=== PATIENT | male | born 1960 | race Caucasian/White ===

== ENCOUNTER → 2019-12-21 | Outpatient (CLI) | payer BC ==
--- NOTE | 2019-12-21 15:58 | US ---
EXAMINATION TYPE: US kidneys/renal and bladder DATE OF EXAM: 12/21/2019 COMPARISON: NONE CLINICAL HISTORY: N18.3 Chronic kidney disease, stage 3. CKD Stage 3 EXAM MEASUREMENTS: Right Kidney: 9.5 x 4.0 x 4.3 cm Left Kidney: cm Post Void Residual Volume: mL Right Kidney: Echogenic area lower pole .8cm . Cystic area upper pole 2.0 x 1.3 x 1.7 cm Left Kidney: 9.6 x 5.6 x 5.6 cm Bladder: wnl Bilateral Jets seen: Yes There is no evidence for hydronephrosis at this point in time. The urinary bladder is anechoic. B ilateral ureteral jets are seen. IMPRESSION: 1. Nonobstructing nephrolithiasis right kidney. 2. Simple appearing cyst upper pole right kidney.
== END | disposition home or self-care (01) ==
LOC: RADUSWWP 15:16
PROVIDERS: ATTEND Internal Medicine
DX: N20.0 Calculus of kidney (principal); N28.1 Cyst of kidney, acquired; N18.3 Chronic kidney disease, stage 3 (moderate)
CPT/HCPCS: 76770

== ENCOUNTER 2022-09-12 11:24 | Day surgery (SDC) | payer BC ==
[~2022-09-12 11:24] MED LIST: ACETAMINOPHEN TAB 500 MG TAB PO PRN; DEXAMETHASONE SOD PHOSPHATE 4 MG/ML 1 ML VIAL IV ONE; HEPARIN SODIUM,PORCINE/PF 5,000 UNIT/0.5 ML SYRINGE SQ PRN; HYDROmorphone 0.5 MG/0.5 ML SYRINGE IVP PRN; LACTATED RINGERS 1,000 ML IV SCH; LIDOCAINE 1% (10MG/ML) FOR IV START INTRADERMA PRN; MIDAZOLAM 2 MG/2 ML VIAL IV PRN; ONDANSETRON 4 MG/2 ML VIAL IVP ONE
[2022-09-12] MEDS ORDERED: LACTATED RINGERS 1,000 ML IV ONE ×2 (11:45→13:54)
--- NOTE | 2022-09-12 11:57 | P.GSHP ---
History of Present Illness H&P Date: 09/12/22 Chief Complaint: Left inguinal hernia 62-year-old male last seen in the office in February. Patient with complaints of a bulge left groin. Mild pain at times. This is increasing in size. The patient has cut down significantly on his tobacco use. Past Medical History Past Medical History: Hypertension, Renal Disease Additional Past Medical History / Comment(s): stage 2b kidney disease History of Any Multi-Drug Resistant Organisms: None Reported Additional Past Surgical History / Comment(s): biceps repair on lft, cyst removed Past Anesthesia/Blood Transfusion Reactions: No Reported Reaction Smoking Status: Current every day smoker - Past Family History Mother Family Medical History: Cancer Additional Family Medical History / Comment(s): mother sister and sister bone Medications and Allergies Home Medications Medication Instructions Recorded Confirmed Type Multivitamins, Thera [Multivitamin 1 tab PO DAILY 09/11/22 09/12/22 History (formulary)] Niacin 1,000 mg PO DAILY 09/11/22 09/12/22 History hydroCHLOROthiazide [Hydrodiuril] 50 mg PO DAILY 09/11/22 09/12/22 History Allergies Allergy/AdvReac Type Severity Reaction Status Date / Time No Known Allergies Allergy Verified 09/12/22 11:47 Surgical - Exam Physical exam: General: Well-developed, well-nourished HEENT: Normocephalic, sclerae nonicteric Abdomen: Nontender, nondistended, reducible left inguinal hernia Extremities: No edema Neuro: Alert and oriented Assessment and Plan (1) Left inguinal hernia Narrative/Plan: 62-year-old male with reducible left inguinal hernia. Options reviewed. We'll proceed with laparoscopic da Larry assisted repair left inguinal hernia with me , possible open, possible bilateral. Risks of bleeding, infection, recurrence, bladder and bowel injury, numbness, nerve injury, conversion to an open procedure were discussed with the patient. The patient understands and wishes to proceed. Current Visit: Yes Status: Acute Code(s): K40.90 - UNIL INGUINAL HERNIA, W/O OBST OR GANGR, NOT SPCF RECUR SNOMED Code(s): 455477493
[2022-09-12 12:23] VITALS: TEMP 97.6
[2022-09-12] MEDS ORDERED: TAMSULOSIN 0.4 MG CAP.ER.24H PO ONE (12:24)
[2022-09-12] MEDS ORDERED: ROCURONIUM 10 MG/ML (5 ML VIAL) IV ONE (12:32)
[2022-09-12] MEDS ORDERED: GLYCOPYRROLATE 0.2 MG/ML 2 ML VIAL ONE (12:32)
[2022-09-12] MEDS ORDERED: MIDAZOLAM 2 MG/2 ML VIAL ONE (12:32)
[2022-09-12] MEDS ORDERED: NEOSTIGMINE 1 MG/ML 10 ML VIAL ONE (12:32)
[2022-09-12] MEDS ORDERED: LIDOCAINE 2% INJ 20 MG/ML (2 ML VIAL) ONE (12:32)
[2022-09-12] MEDS ORDERED: PROPOFOL 10 MG/ML 20 ML VIAL IV ONE (12:32)
[2022-09-12] MEDS ORDERED: ePHEDrine 50 MG/ML 1 ML VIAL ONE (12:32)
[2022-09-12] MEDS ORDERED: fentaNYL (PF) 50 MCG/ML 2 ML AMP ONE (12:32)
[2022-09-12] MEDS ORDERED: SUCCINYLCHOLINE CHLORIDE 200 MG/10 ML VIAL IV ONE (12:32)
[2022-09-12] MEDS ORDERED: BUPIVACAINE (PF) 0.25% 30 ML VIAL SQ ONE (12:58)
[2022-09-12] MEDS ORDERED: TAMSULOSIN 0.4 MG CAP.ER.24H PO STA (14:13)
[2022-09-12] MEDS ORDERED: ACETAMINOPHEN TAB 325 MG TAB PO SCH (14:15)
--- NOTE | 2022-09-12 14:33 | P.OP ---
Date of Procedure: 09/12/22 Procedure(s) Performed: PREOPERATIVE DIAGNOSIS: Left inguinal hernia POSTOPERATIVE DIAGNOSIS: Left indirect inguinal hernia PROCEDURE: Laparoscopic da Lrary assisted repair left inguinal hernia with mesh SURGEON: Dr. Rausch ANESTHESIA: General OPERATIVE PROCEDURE DETAILS: Patient was placed in the operating table in the supine position. The patient was placed under general anesthesia. The abdomen was prepped and draped in usual sterile fashion. A small curvilinear supraumbilical incision was made. The fascia was retracted anteriorly with Brodhead forceps. The Veress needle was inserted. The saline drop test was normal. Insufflation took place to 15 mmHg. An 8 mm trocar was placed into the peritoneal cavity. 2 additional 8 mm trochars were placed in the right upper quadrant and left upper quadrant under visualization. The robotic arms were then brought in and docked into place. The fenestrated bipolar was used in the left arm and the laparoscopic maurisio was utilized in the right arm. A 30 8 mm scope was used in the up position. The peritoneal cavity was inspected. The patient had a moderate sized indirect hernia on the left. No hernia was on the right. The peritoneum was incised in a horizontal fashion cephalad to the internal inguinal ring. Following that careful dissection of the preperitoneal space took place. This took place using both electrocautery, sharp dissection but primarily blunt dissection. Visualization of the pubic tubercle and Akhil's ligament took place medially. Full dissection took place laterally as well. The hernia sac was fully dissected. Once we had adequate space the [id number] Progrip mesh was advanced into the preperitoneal space and flattened out appropriately to cover all potential hernia sites. No sutures were used. The peritoneal defect was then closed using a absorbable 2-0 VLok suture. The hernia sac was incorporated into the peritoneal closure to help prevent future recurrence. The pneumoperitoneum was then evacuated. The skin of all 3 sites was closed using a 4-0 Monocryl stitch. Skin glue was then applied. TYPE OF MESH USED: Progrip 15 cm LOCATION OF MESH: Preperitoneal FIXATION: None PREOPERATIVE DISCUSSION ON SMOKING CESSASTION: Yes PREOPERATIVE DISCUSSION ON MORBID OBESITY: Yes PREOPERATIVE DISCUSSION ON APPROPRIATE USE OF NARCOTIC USE: Yes PREOPERATIVE EDUCATION: Multi Modal, Smoking Cessation and Weight Loss with BMI over 35. DISPOSITION: Stable to recovery room
[2022-09-12 14:36] VITALS: RESP 16
[2022-09-12 15:42] VITALS: BP 113/71; PULSE 73
[2022-09-12] MEDS ORDERED: IBUPROFEN 600 MG TAB PO SCH (17:15)
== END 2022-09-12 16:06 | disposition home or self-care (01) ==
LOC: OR 11:24
PROVIDERS: ATTEND Surgery
DX: K40.90 Unilateral inguinal hernia, without obstruction or gangrene, not specified as recurrent (principal); I10 Essential (primary) hypertension; N28.9 Disorder of kidney and ureter, unspecified; F17.200 Nicotine dependence, unspecified, uncomplicated; Z80.8 Family history of malignant neoplasm of other organs or systems; Z79.899 Other long term (current) drug therapy
CPT/HCPCS: 49650; S2900; 84132; 86850; 86900; 86901

== ENCOUNTER 2023-06-16 05:41 | Day surgery (SDC) | payer BC ==
[~2023-06-16 05:41] MED LIST changes: -ACETAMINOPHEN TAB 500 MG TAB PO PRN; -DEXAMETHASONE SOD PHOSPHATE 4 MG/ML 1 ML VIAL IV ONE; -HEPARIN SODIUM,PORCINE/PF 5,000 UNIT/0.5 ML SYRINGE SQ PRN; -HYDROmorphone 0.5 MG/0.5 ML SYRINGE IVP PRN; -LACTATED RINGERS 1,000 ML IV SCH; -MIDAZOLAM 2 MG/2 ML VIAL IV PRN; -ONDANSETRON 4 MG/2 ML VIAL IVP ONE
[2023-06-16] MEDS: LACTATED RINGERS 1,000 ML IV SCH (06:14)
[2023-06-16] MEDS: DEXAMETHASONE SOD PHOSPHATE 4 MG/ML 1 ML VIAL IV ONE (06:40)
[2023-06-16] MEDS: ONDANSETRON 4 MG/2 ML VIAL IVP ONE (06:40)
[2023-06-16] MEDS ORDERED: HYDROmorphone 0.5 MG/0.5 ML SYRINGE IVP PRN (07:00)
[2023-06-16] MEDS ORDERED: METOCLOPRAMIDE 5 MG/ML 2 ML VIAL IVP PRN (07:00)
[2023-06-16] MEDS ORDERED: MIDAZOLAM 2 MG/2 ML VIAL ONE (07:10)
[2023-06-16] MEDS ORDERED: fentaNYL (PF) 50 MCG/ML 2 ML AMP ONE (07:10)
[2023-06-16] MEDS ORDERED: PROPOFOL 10 MG/ML 20 ML VIAL IV ONE (07:10)
--- NOTE | 2023-06-16 07:11 | P.HPIHPCON ---
History of Present Illness H&P Date: 06/16/23 Chief Complaint: Microhematuria, bladder mass This is a 62-year-old male with history history of microhematuria, underwent a cystoscopy that showed evidence of a bladder tumor. Of note patient is also has history of CKD, thus unable to undergo contrasted images. Discussed with him the option of doing a bilateral retrograde at the same time as the cystoscopy to evaluate the upper tract. Aware the risk which includes but not limited to bleeding, infection, bladder perforation. Discussed if there is abnormality on retrograde then we we will perform a ureteroscopy. He understood all the risk and agreed to proceed Consent for Procedure: I have explained the operation/procedure to the patient, including the risks, benefits, side effects, alternative therapies (including not receiving the proposed treatment or service), the likelihood of the patient achieving his/her goals, and potential recuperation problems for the procedure/sedation/analgesia, as well as any blood products, if indicated. I also explained to the patient the risks, benefits and side effects of the alternatives, as well as the risks related to not receiving the proposed procedure, care, treatment, or services. Past Medical History Past Medical History: Hypertension, Osteoarthritis (OA), Renal Disease Additional Past Medical History / Comment(s): bladder tumor, stage 2b kidney disease History of Any Multi-Drug Resistant Organisms: None Reported Past Surgical History: Hernia Repair Additional Past Surgical History / Comment(s): left bicep repair, cyst removed from head, robotic repair left inguinal hernia Past Anesthesia/Blood Transfusion Reactions: No Reported Reaction Smoking Status: Former smoker - Past Family History Mother Sister(s) Family Medical History: Cancer Medications and Allergies Home Medications Medication Instructions Recorded Confirmed Type Multivitamins, Thera [Multivitamin 1 tab PO DAILY 09/11/22 06/16/23 History (formulary)] Niacin 1,000 mg PO DAILY 09/11/22 06/16/23 History hydroCHLOROthiazide [Hydrodiuril] 25 mg PO DAILY 09/11/22 06/16/23 History Sodium Bicarbonate 325 mg PO DAILY 06/11/23 06/16/23 History amLODIPine [Norvasc] 2.5 mg PO HS 06/11/23 06/16/23 History Allergies Allergy/AdvReac Type Severity Reaction Status Date / Time No Known Allergies Allergy Verified 06/16/23 06:29 Surgical - Exam Vital Signs Temp Pulse Resp BP Pulse Ox 97 F L 71 16 142/88 97 06/16/23 06:30 06/16/23 06:30 06/16/23 06:30 06/16/23 06:30 06/16/23 06:30 - General no distress, no pain - Eyes normal ocular movement, no pale - ENT normal nares, normal mucosa - Respiratory normal expansion, normal respiratory effort - Abdomen Abdomen: soft, non tender, no distended - Psychiatric oriented to time, oriented to person, oriented to place Assessment and Plan Assessment: OR for TURBT with bilateral retrograde pyelogram
[2023-06-16] MEDS: IOHEXOL 350 MG/ML 100 ML in EMPTY BAG 1 BAG IRRIGATION ONE (07:41)
--- NOTE | 2023-06-16 08:00 | P.OP ---
Date of Procedure: 06/16/23 Preoperative Diagnosis: Bladder mass, Microhematuria Postoperative Diagnosis: Same Procedure(s) Performed: Cystoscopy, TURBT(medium), bilateral retrograde Polygram Anesthesia: GETA Estimated Blood Loss (ml): 10 Pathology: other (Bladder mass) Condition: stable Disposition: PACU Indications for Procedure: This is a 62-year-old male with history history of microhematuria, underwent a cystoscopy that showed evidence of a bladder tumor. Of note patient is also has history of CKD, thus unable to undergo contrasted images. Discussed with him the option of doing a bilateral retrograde at the same time as the cystoscopy to evaluate the upper tract. Aware the risk which includes but not limited to bl eeding, infection, bladder perforation. Discussed if there is abnormality on retrograde then we we will perform a ureteroscopy. He understood all the risk and agreed to proceed Operative Findings: 2.5 cm papillary solitary lesion along the right lateral wall. Normal bilateral retrograde pyelogram Description of Procedure: Patient brought to the operating room, general anesthesia was induced. He was prepped and draped in sterile fashion and placed in dorsolithotomy position. I attempted to place cystoscopy with 25 [place] sheath but patient had narrowing at the navicularis fossa. The navicularis fossa was dilated using the Galen sounds to 28 [place] African starting with 22 [place] African. Next a resectoscope fitted with a 25 [place] sheath was inserted per urethra advanced into the bladder, cystoscopy was performed which showed a solitary papillary lesion along the right lateral wall. Using the bipolar resectoscope, the tumor was resected down to muscle. The area of resection was fulgurated, total area of resection was 2.5 cm. Repeat cystoscopy showed no residual tumor,or any additional tumors or evidence of bladder perforation. The patient abdomen was soft in the end of resection. At this time the cystoscope fitted with a 22 [place] sheath was inserted per urethra, attention was carried to the retrograde pyelogram. Left ureter orifice was intubated with a 6 [place] African open-ended catheter, retrograde pyelogram was performed on the left side which showed no filling defect or hydronephrosis. Attention was then carried to the right side which was intubated with an open- ended catheter, retrograde pyelogram was performed on that side which showed no hydronephrosis or any filling defect. The bladder was emptied at the end of the case. 18 [place] Hoff was placed with return of clear urine. patient tolerated the procedure well and was taken to recovery in stable condition
[2023-06-16 08:46] VITALS: TEMP 97.8
[2023-06-16 09:16] VITALS: RESP 16
[2023-06-16 10:04] VITALS: BP 132/70; PULSE 55
--- NOTE | 2023-06-16 13:43 | FL ---
EXAMINATION TYPE: FL urography retrograde DATE OF EXAM: 06/16/2023 FLUOROSCOPY FL time: 33.7sec DAP: .[id number] Gycm[address]AL RETRO[address]ADE [address]. Samuel Urologic intervention for bladder tumor.
== END 2023-06-16 09:49 | disposition home or self-care (01) ==
LOC: OR 05:41
PROVIDERS: ATTEND Urology
DX: N32.9 Bladder disorder, unspecified (principal); R31.29 Other microscopic hematuria; N18.9 Chronic kidney disease, unspecified; Z87.891 Personal history of nicotine dependence; Z79.899 Other long term (current) drug therapy
CPT/HCPCS: 88307; 74420; 52235; C1758; J2250; J1100; J0690; J2405; J3010; J2704; Q9967

== ENCOUNTER → 2024-11-16 | Outpatient (CLI) | payer BC ==
--- NOTE | 2024-11-16 15:06 | US ---
EXAMINATION TYPE: US kidneys/renal and bladder DATE OF EXAM: 11/16/2024 COMPARISON: NONE CLINICAL INDICATION: Male, 64 years old with history of N18.2 CHRONIC KIDNEY DISEASE, STAGE 2 (MILD); CKD 2 TECHNIQUE: Grayscale imaging of the bilateral kidneys and urinary bladder: FINDINGS: EXAM MEASUREMENTS: Right Kidney: 9.9 x 3.9 x 5.1 cm Left Kidney: 9.6 x 5.3 x 4.0 cm Right Kidney: Benign upper pole renal cortical cyst measuring 3.3 cm. There is a shadowing 1.3 cm ech ogenic focus at the lower pole. No hydronephrosis. Left Kidney: No hydronephrosis or masses seen Bladder: Anechoic Bilateral Jets seen: yes IMPRESSION: 1. No hydronephrosis. 2. A benign 2.3 cm right renal cyst. 3. 1.3 cm nonobstructive right renal stone. [facility], Workstation: [email or web address], 11/16/2024 3:04 PM
== END | disposition home or self-care (01) ==
LOC: RADUSWWP 14:28
PROVIDERS: ATTEND Internal Medicine
DX: N18.2 Chronic kidney disease, stage 2 (mild) (principal); N28.1 Cyst of kidney, acquired; N20.0 Calculus of kidney
CPT/HCPCS: 76770